=== PATIENT | male | born 1950 | race Caucasian/White ===

== ENCOUNTER 2022-09-26 08:41 | Emergency (ER) | payer MEDICARE ==
[2022-09-26 08:50] VITALS: TEMP 98.5
--- NOTE | 2022-09-26 10:12 | ED ---
General Adult HPI - General Chief complaint: Extremity Problem,Nontraumatic Stated complaint: joint pain all over Time Seen by Provider: 09/26/22 09:50 Source: patient Mode of arrival: ambulatory Limitations: no limitations - History of Present Illness Initial comments: Patient is a pleasant 71-year-old male presented to the emergency room with complaints of generalized joint pain and stiffness ongoing for several days. He reports that he initially only had knee pain after returning to the area from [place] but over the last 3-4 days has developed joint pain and all extremities. He reports that his joint pain is similar to the joint pain that he experienced associated with his presumptive giant cell arteritis approximately 2 years ago. He was treated with steroids at that time and responded well and was able to be weaned off steroids and felt well for quite some time after. He reports that he underwent a biopsy while in [place] and the biopsy was inconclusive however due to his symptomatology and elevated CRP and sedimentation rates he was presumed to have giant cell arteritis and was treated accordingly by his provider in [place]. He reports that he recently got a cortisone injection into his right knee for his knee pain without any changes in his knee pain symptom. He denies any other symptoms associated with giant cell arteritis including any visual impairment, temporal pain or headaches, or jaw pain/jaw claudication. In addition to his previous giant cell arteritis treatment he has a past medical history significant for paroxysmal A. fib not currently on anticoagulation, and hyperlipidemia. - Related Data Previous Rx's Medication Instructions Recorded predniSONE [Deltasone] 60 mg PO DAILY 7 Days #21 tab 09/26/22 Allergies Allergy/AdvReac Type Severity Reaction Status Date / Time No Known Allergies Allergy Verified 09/26/22 08:50 Review of Systems ROS Statement: Those systems with pertinent positive or pertinent negative responses have been documented in the HPI. ROS Other: All systems not noted in ROS Statement are negative. Past Medical History Past Medical History: Atrial Fibrillation, Hyperlipidemia History of Any Multi-Drug Resistant Organisms: None Reported Past Surgical History: No Surgical Hx Reported Past Psychological History: No Psychological Hx Reported Smoking Status: Never smoker Past Alcohol Use History: Occasional General Exam Limitations: no limitations General appearance: alert, in no apparent distress Head exam: Present: atraumatic, normocephalic, normal inspection, other (No scalp tenderness. No temporal tenderness.) Eye exam: Present: normal appearance, PERRL, EOMI. Absent: scleral icterus, conjunctival injection, periorbital swelling ENT exam: Present: normal exam, mucous membranes moist Neck exam: Present: normal inspection, full ROM. Absent: tenderness Respiratory exam: Absent: respiratory distress, accessory muscle use Cardiovascular Exam: Present: regular rate GI/Abdominal exam: Absent: distended, tenderness Extremities exam: Present: full ROM, normal capillary refill, other (Stiffness and pain with range of motion no point tenderness). Absent: tenderness, pedal edema, joint swelling Back exam: Present: normal inspection, full ROM Neurological exam: Present: alert, oriented X3, CN II-XII intact Psychiatric exam: Present: normal affect, normal mood Course Vital Signs 09/26/22 09/26/22 09/26/22 08:47 10:23 12:53 Temperature 98.5 F Pulse Rate 79 75 68 Respiratory 20 18 18 Rate Blood Pressure 158/98 116/86 127/65 O2 Sat by Pulse 99 97 96 Oximetry Medical Decision Making - Medical Decision Making Was pt. sent in by a medical professional or institution (, PA, RECHECKER, urgent care, hospital, or skilled nursing...) When possible be specific @ -Advised to present to the emergency room by his physician in [place] Did you speak to anyone other than the patient for history (EMS, parent, family, police, friend...)? What history was obtained from this source @ -No Did you review nursing and triage notes (agree or disagree)? Why? @ -I reviewed and agree with nursing and triage notes Were old charts reviewed (outside hosp., previous admission, EMS record, old EKG, old radiological studies, urgent care reports/EKG's, skilled nursing records)? Report findings @ -Yes, I reviewed laboratory studies from electronic chart available to view from [place] which demonstrates normal CRP and sed rates in October 2021 which was when his laboratories were last taken. Differential Diagnosis (chest pain, altered mental status, abdominal pain women, abdominal pain men, vaginal bleeding, weakness, fever, dyspnea, syncope, head ache, dizziness, GI bleed, back pain, seizure, CVA, palpatations, mental health, musculoskeletal)? @ -Differential Musculoskeletal Muscular strain, contusion, ligament sprain, fracture, arthritis, septic arthritis, bursitis, cellulitis, muscle spasm, nerve compression, DVT, arterial occlusion, herpes zoster, electrolyte abnormality, tumor.... This is not meant to be in all inclusive list EKG interpreted by me (3pts min.). @ -None done X-rays interpreted by me (1pt min.). @ -None done CT interpreted by me (1pt min.). @ -None done U/S interpreted by me (1pt. min.). @ -None done What testing was considered but not performed or refused? (CT, X-rays, U/S, labs)? Why? @ -None What meds were considered but not given or refused? Why? @ -None Did you discuss the management of the patient with other professionals (professionals i.e. Dr., PA, RECHECKER, lab, RT, psych nurse, social media analyst, felt checker, teacher, defence force senior officer, case packer and sealer)? Give summary @ -No Was smoking cessation discussed for >3mins.? @ -No Was critical care preformed (if so, how long)? @ -No Were there social determinants of health that impacted care today? How? (Homelessness, low income, unemployed, alcoholism, drug addiction, transportation, low edu. Level, literacy, decrease access to med. care, alf, rehab)? @ -No Was there de-escalation of care discussed even if they declined (Discuss DNR or withdrawal of care, Hospice)? DNR status @ -No What co-morbidities impacted this encounter? (DM, HTN, Smoking, COPD, CAD, Cancer, CVA, ARF, Chemo, Hep., AIDS, mental health diagnosis, sleep apnea, morbid obesity)? @ -Previous treatment for suspected giant cell arteritis inconclusive biopsy completed in [place] Was patient admitted / discharged? Hospital course, mention meds given and route, prescriptions, significant lab abnormalities, going to OR and other pertinent info. @ -71-year-old male presented to the emergency room with complaints of generalized joint pain and stiffness ongoing for several days. He reports that he initially only had knee pain after returning to the area from [place] but over the last 3-4 days has developed joint pain and all extremities. He reports that his joint pain is similar to the joint pain that he experienced associated with his presumptive giant cell arteritis approximately 2 years ago. He was treated with steroids at that time and responded well and was able to be weaned off steroids and felt well for quite some time after. Will obtain CBC, CRP and sedimentation rate along with CMP no indication for diagnostic imaging and declines medication need at this time. CBC normal. ESR 48, CRP 4.2 glucose elevated 114 remaining CMP normal. Findings discussed with patient. Advised given normalization of sed rate and CRP and beginning of symptoms a few days ago likely labs are going to continue to trend upwards. Advised will start on prednisone 60 mg daily 1 week and have him follow-up with his provider via Zoom visit in [place] for continuation of treatment for concern for relapse of giant cell arteritis. Questions and concerns answered. Return parameters to the emergency room discussed. Will discharge home in stable condition on oral steroids for elevated C reactive protein level and ESR rate with concern for relapse of giant cell arteritis advising follow-up with primary care provider. Undiagnosed new problem with uncertain prognosis? @ -No Drug Therapy requiring intensive monitoring for toxicity (Heparin, Nitro, Insulin, Cardizem)? @ -No Were any procedures done? @ -No Diagnosis/symptom? @ -Elevated CRP and ESR Acute, or Chronic, or Acute on Chronic? @ -Acute on chronic Uncomplicated (without systemic symptoms) or Complicated (systemic symptoms)? @ -default Side effects of treatment? @ -No Exacerbation, Progression, or Severe Exacerbation? @ -Exacerbation Poses a threat to life or bodily function? How? (Chest pain, [place], [place], pneumonia, PE, COPD, DKA, ARF, appy, cholecystitis, CVA, Diverticulitis, Homicidal, Aranza cidal, threat to staff... and all critical care pts) @ -No Case discussed with . - Lab Data Result diagrams: 09/26/22 10:32 09/26/22 10:32 Lab Results 09/26/22 09/26/22 Range/Units 10:32 10:32 WBC 8.7 (3.8-10.6) k/uL RBC 4.55 (4.30-5.90) m/uL Hgb 13.7 (13.0-17.5) gm/dL Hct 41.7 (39.0-53.0) % MCV 91.7 (80.0-100.0) fL MCH 30.2 (25.0-35.0) pg MCHC 32.9 (31.0-37.0) g/dL RDW 12.9 (11.5-15.5) % Plt Count 332 (150-450) k/uL MPV 7.9 Neutrophils % 70 % Lymphocytes % 18 % Monocytes % 7 % Eosinophils % 4 % Basophils % 0 % Neutrophils # 6.1 (1.3-7.7) k/uL Lymphocytes # 1.6 (1.0-4.8) k/uL Monocytes # 0.6 (0-1.0) k/uL Eosinophils # 0.3 (0-0.7) k/uL Basophils # 0.0 (0-0.2) k/uL ESR 48 H (0-15) mm/hr Sodium 140 (137-145) mmol/L Potassium 4.9 (3.5-5.1) mmol/L Chloride 107 (98-107) mmol/L Carbon Dioxide 23 (22-30) mmol/L Anion Gap 10 mmol/L BUN 19 (9-20) mg/dL Creatinine 0.74 (0.66-1.25) mg/dL Est GFR (CKD-EPI)AfAm >90 (>60 ml/min/1.73 sqM) Est GFR (CKD-EPI)NonAf >90 (>60 ml/min/1.73 sqM) Glucose 114 H (74-99) mg/dL Calcium 9.2 (8.4-10.2) mg/dL Total Bilirubin 0.8 (0.2-1.3) mg/dL AST 22 (17-59) U/L ALT 17 (4-49) U/L Alkaline Phosphatase 81 (38-126) U/L C-Reactive Protein 4.2 H (<1.0) mg/dL Total Protein 6.9 (6.3-8.2) g/dL Albumin 4.0 (3.5-5.0) g/dL Disposition Clinical Impression: ESR raised, CRP elevated Disposition: HOME SELF-CARE Condition: Stable Additional Instructions: Charts course of steroids as prescribed. Do not take NSAIDs while taking steroids. May use Tylenol for pain as needed while on steroids. Please contact your doctor in [place] regarding today's laboratory results and can continuation of steroid treatment for possible return of giant cell arteritis. Please return to the Emergency Department if symptoms worsen or any other concerns. Prescriptions: predniSONE [Deltasone] 60 mg PO DAILY 7 Days #21 tab Is patient prescribed a controlled substance at d/c from ED?: No Referrals: None,Stated [Primary Care Provider] - 1-2 days Time of Disposition: 12:43
[2022-09-26 10:27] VITALS: RESP 18
[2022-09-26 10:51] LABS: Basophils % (A) 0 %; Eosinophils # (A) 0.3 k/uL (0-0.7); Eosinophils % (A) 4 %; HCT 41.7 % (39.0-53.0); HGB 13.7 gm/dL (13.0-17.5); Lymphocytes # (A) 1.6 k/uL (1.0-4.8); Lymphocytes % (A) 18 %; MCH 30.2 pg (25.0-35.0); MCHC 32.9 g/dL (31.0-37.0); MCV 91.7 fL (80.0-100.0); Mean Platelet Volume 7.9; Monocytes # (A) 0.6 k/uL (0-1.0); Monocytes % (A) 7 %; Neutrophils # (A) 6.1 k/uL (1.3-7.7); Neutrophils % (A) 70 %; Platelet Count 332 k/uL (150-450); RBC 4.55 m/uL (4.30-5.90); RDW 12.9 % (11.5-15.5); WBC 8.7 k/uL (3.8-10.6)
[2022-09-26 11:01] LABS: ALT 17 U/L (4-49); AST 22 U/L (17-59); African American GFR (CKD) >90 (>60 ml/min/1.73 sqM); Alkaline Phosphatase 81 U/L (38-126); Anion Gap 10 mmol/L; Blood Urea Nitrogen 19 mg/dL (9-20); C Reactive Protein 4.2 mg/dL (<1.0); Calcium 9.2 mg/dL (8.4-10.2); Carbon Dioxide 23 mmol/L (22-30); Chloride 107 mmol/L (98-107); Glucose 114 mg/dL (74-99); Non-African American GFR(CKD) >90 (>60 ml/min/1.73 sqM); Potassium 4.9 mmol/L (3.5-5.1); Sodium 140 mmol/L (137-145); Total Bilirubin 0.8 mg/dL (0.2-1.3); Total Protein 6.9 g/dL (6.3-8.2)
[2022-09-26 12:21] LABS: Erythrocyte Sedimentation Rate 48 mm/hr (0-15)
[2022-09-26 12:54] VITALS: BP 127/65; PULSE 68
== END 2022-09-26 12:54 | disposition home or self-care (01) ==
LOC: EC 08:41
DX: R70.0 Elevated erythrocyte sedimentation rate (principal); R79.82 Elevated C-reactive protein (CRP); I48.0 Paroxysmal atrial fibrillation
CPT/HCPCS: 36415; 80053; 85025; 85652; 86140; 99283